=== PATIENT | female | born 1985 | race Caucasian/White ===

== ENCOUNTER 2016-06-05 00:44 | Emergency (ER) | payer MEDICAID ==
[~2016-06-05] VITALS: Ht 160 cm; Wt 59.0 kg
[2016-06-05 03:28] VITALS: BP 112/72
== END 2016-06-05 03:29 | disposition home or self-care (01) ==
LOC: ER 00:45
DX: F41.9 Anxiety disorder, unspecified (principal); Z98.890 Other specified postprocedural states
CPT/HCPCS: 99283; Z7610